=== PATIENT | male | born 1965 | race Two or more races ===

== ENCOUNTER → 2018-02-13 | Day surgery (SDC) | payer OTHER ==
[~2018-02-13] MED LIST: PROPOFOL 20 ML IV
[2018-02-13] MEDS: IV RINGERS,LACTATED 1000ML 1,000 ML IV (12:48)
== END ==
LOC: SURG 12:06
DX: Z12.11 Encounter for screening for malignant neoplasm of colon (principal); K64.8 Other hemorrhoids; M19.90 Unspecified osteoarthritis, unspecified site; E11.9 Type 2 diabetes mellitus without complications; Z79.899 Other long term (current) drug therapy
CPT/HCPCS: 45378; J2704